=== PATIENT | female | born 1945 | race Caucasian/White ===

== ENCOUNTER 2017-12-07 05:31 | Outpatient (CLI) | payer MEDICARE ==
[~2017-12-07] VITALS: Ht 160 cm; Wt 83.9 kg
[2017-12-07] MEDS ORDERED: OXYC-465 PO (09:16)
[2017-12-07] MEDS ORDERED: GABA-488 PO (09:16)
== END 2017-12-07 09:32 | disposition home or self-care (01) ==
LOC: PREOP 05:31
PROVIDERS: ATTEND Orthopaedic Surgery
DX: Z01.818 Encounter for other preprocedural examination (principal)

== ENCOUNTER 2018-09-05 05:45 | Outpatient (CLI) | payer MEDICARE ==
[~2018-09-05] VITALS: Ht 160 cm; Wt 90.3 kg
[~2018-09-05 05:45] MED LIST: GABA-488 PO; OXYC-465 PO
[2018-09-05] MEDS ORDERED: OXYC-529 PO (11:15)
[2018-09-05] MEDS ORDERED: ROPI0.5T2 PO (11:15)
== END 2018-09-05 11:19 | disposition home or self-care (01) ==
LOC: PREOP 05:45
PROVIDERS: ATTEND Orthopaedic Surgery
DX: Z01.818 Encounter for other preprocedural examination (principal)

== ENCOUNTER 2018-09-12 06:46 | Day surgery (SDC) | payer MEDICARE ==
[~2018-09-12] VITALS: Ht 160 cm; Wt 90.3 kg
[~2018-09-12 06:46] MED LIST changes: +OXYC-529 PO; +ROPI0.5T2 PO
[2018-09-12 07:00] VITALS: BP 163/77
[2018-09-12] MEDS ORDERED: SEVOFLURANE (ULTANE) 15 ML INHAL SOLN ONE (07:14)
[2018-09-12] MEDS ORDERED: DEXAMETHASONE 10 MG/ML (DECADRON) 1 ML VIAL ONE (07:14)
[2018-09-12] MEDS ORDERED: MIDAZOLAM 2 MG/2 ML (VERSED) VIAL ONE (07:14)
[2018-09-12] MEDS ORDERED: PROPOFOL INJECTION 0 ML IV ONE (07:14)
[2018-09-12] MEDS ORDERED: ONDANSETRON 4 MG/2 ML (SDV) Z0FRAN ONE (07:14)
[2018-09-12] MEDS ORDERED: fentaNYL INJECTION 100 MCG/2 ML AMP ONE (07:15)
[2018-09-12] MEDS ORDERED: SUCCINYLCHOLINE INJ 100 MG/5 ML SYR ONE (07:29)
[2018-09-12] MEDS ORDERED: BUP/EPI 0.5% 1:200,000 (SENSORCAINE) 30 ML VIAL ONE (07:30)
[2018-09-12] MEDS ORDERED: VANCOMYCIN 1000 MG/VIAL ONE (07:31)
[2018-09-12] MEDS ORDERED: LACTATED RINGERS 1,000 ML IV PRN (07:40)
[2018-09-12] MEDS ORDERED: ceFAZolin 2 GM/50 ML NS 50 ML IV ONE (07:45)
[2018-09-12] MEDS ORDERED: BACITRACIN 100,000 UNIT/NS 1000 ML POUR BOTTLE IR ONE ×2 (07:45)
[2018-09-12] MEDS ORDERED: CATHETER FLUSH 10 ML SYR IV PRN (08:00)
--- NOTE | 2018-09-12 08:00 | NUR ---
SPINAL CORD STIMULATOR REP HAS BEEN AT BEDSIDE AND ABLE TO ACTIVATE STIMULATOR. PT REPORTS SHE CAN FEEL STIMULATOR WORKING AND IS GETTING PAIN RELIEF. [facility] REP CONTACTED DR BOSWELL AND SURGERY IS CANCELLED. PT DISMISSED AMB WITH .
== END 2018-09-12 08:00 | disposition home or self-care (01) ==
LOC: SDC 06:46
PROVIDERS: ATTEND Orthopaedic Surgery
DX: M54.16 Radiculopathy, lumbar region (principal); G89.29 Other chronic pain; F32.9 Major depressive disorder, single episode, unspecified; G40.909 Epilepsy, unspecified, not intractable, without status epilepticus; Z53.9 Procedure and treatment not carried out, unspecified reason